=== PATIENT | male | born 1990 | race Caucasian/White ===

== ENCOUNTER → 2018-07-06 | Outpatient (CLI) | payer OTHER ==
[~2018-07-06] MED LIST: AMPDEX10; Ativan1 MG PO; CETI10 PO; ERYT500 PO; FAMO20 PO; HYDACE5 PO; IBUP800 PO; METPRE4DP PO; Norco 5-325 Ta1 EACH PO; PRED20 PO; PROBIOTIC1 EAC1 PO; Percocet 5-3251 EACH PO; QUET100 PO; QUET25 PO; Ultram50 MG PO
[2018-07-09 01:11] LABS: CHLAMYDIA TRACHOMATIS, NAA Negative (Negative); NEISSERIA GONORRHOEAE, NAA Negative (Negative)
== END | disposition home or self-care (01) ==
LOC: LAB SRC 13:30 → LAB SHORT 13:30
PROVIDERS: Physician Assistant
DX: R30.9 Painful micturition, unspecified (principal)
CPT/HCPCS: 87491; 87591

== ENCOUNTER 2018-09-29 20:28 | Emergency (ER) | payer OTHER ==
[~2018-09-29] VITALS: Ht 180.3 cm; Wt 93.0 kg
[2018-09-29] MEDS ORDERED: Prozac20 MG (20:36)
[2018-09-29] MEDS ORDERED: OLANZAPINE15 MG PO (20:36)
[2018-09-29] MEDS ORDERED: HYDR1TAB94 PO (21:33)
[2018-09-29] MEDS ORDERED: IBUP800 PO (21:33)
== END 2018-09-29 21:55 | disposition home or self-care (01) ==
LOC: ER 20:28
DX: M23.92 Unspecified internal derangement of left knee (principal); Z88.0 Allergy status to penicillin; Z79.899 Other long term (current) drug therapy; F17.210 Nicotine dependence, cigarettes, uncomplicated; F20.9 Schizophrenia, unspecified
CPT/HCPCS: 29505; 73562-LT; 99283-25; A9270

== ENCOUNTER → 2018-10-05 | Outpatient (CLI) | payer OTHER ==
[~2018-10-05] MED LIST changes: +HYDR1TAB94 PO; +OLANZAPINE15 MG PO; +Prozac20 MG
[2018-10-05 10:19] LABS: WBC Count, Synovial Fluid 1154 /mm3 (0-180)
[2018-10-05 11:07] LABS: Color, Synovial Fluid Pale Yellow (None-P Yel)
[2018-10-05 11:08] LABS: RBC Count, Synovial Fluid 250 /mm3 (0-0)
[2018-10-05 11:14] LABS: Body Fluid Crystals NEG (NEGATIVE)
[2018-10-05 11:18] LABS: Appearance, Synovial Fluid Hazy (Clear)
[2018-10-05 11:25] LABS: Lymphs, Synovial Fluid 9 % (0-15); Monocytes/Macrophages, Synovia 59 % (0-65); Neutrophils, Synovial Fluid 30 % (0-24)
== END | disposition home or self-care (01) ==
LOC: LAB SHORT 09:46 → LAB 09:46
PROVIDERS: Orthopaedic Surgery
DX: M25.462 Effusion, left knee (principal)
CPT/HCPCS: 87070; 87075; 87205; 89051; 89060

== ENCOUNTER → 2019-01-04 | Outpatient (CLI) | payer OTHER ==
[2019-01-04 17:38] LABS: U Amphetamine Screen Not Detected; U Barbituate Screen Not Detected; U Benzodiazapine Screen Not Detected; U Buprenorphine Screen Not Detected; U Cannabinoids Screen DETECTED; U Cocaine Screen Not Detected; U Methadone Screen Not Detected; U Methamphetamine Screen Not Detected; U Opiates Screen Not Detected; U Oxycodone Screen Not Detected; U Phencyclidine Screen Not Detected; U Propoxyphene Screen Not Detected
== END | disposition home or self-care (01) ==
LOC: LAB SHORT 14:28 → LAB 14:28
PROVIDERS: Psychiatry & Neurology Psychiatry
DX: Z51.81 Encounter for therapeutic drug level monitoring (principal); Z79.899 Other long term (current) drug therapy
CPT/HCPCS: G0480

== ENCOUNTER 2022-04-10 11:08 | Day surgery (SDC) | payer OTHER ==
[~2022-04-10] VITALS: Ht 180.3 cm; Wt 115.9 kg
[2022-04-10] MEDS ORDERED: CAPLYTA (11:36)
[2022-04-10] MEDS ORDERED: DIVA125 (11:37)
[2022-04-10] MEDS ORDERED: QUET25 ×2 (11:37→11:38)
[2022-04-10] MEDS ORDERED: FLUO10 (11:37)
[2022-04-10] MEDS ORDERED: VENL25 (11:37)
== END 2022-04-10 13:26 | disposition home or self-care (01) ==
LOC: ORSCSDS 11:08
PROVIDERS: Student in an Organized Health Care Education/Training Program
PROC: 0DBL8ZX Excision of Transverse Colon, Via Natural or Artificial Opening Endoscopic, Diagnostic (ICD-10-PCS; principal; 2022-04-10 13:15)
PROC: 0DBE8ZX Excision of Large Intestine, Via Natural or Artificial Opening Endoscopic, Diagnostic (ICD-10-PCS; principal; 2022-04-10 13:15)
PROC: 0DB58ZX Excision of Esophagus, Via Natural or Artificial Opening Endoscopic, Diagnostic (ICD-10-PCS; principal; 2022-04-10 13:15)
PROC: 0DBN8ZX Excision of Sigmoid Colon, Via Natural or Artificial Opening Endoscopic, Diagnostic (ICD-10-PCS; principal; 2022-04-10 13:15)
PROC: 0DB98ZX Excision of Duodenum, Via Natural or Artificial Opening Endoscopic, Diagnostic (ICD-10-PCS; principal; 2022-04-10 13:15)
PROC: 0DB78ZX Excision of Stomach, Pylorus, Via Natural or Artificial Opening Endoscopic, Diagnostic (ICD-10-PCS; principal; 2022-04-10 13:15)
DX: R19.7 Diarrhea, unspecified (principal); K52.9 Noninfective gastroenteritis and colitis, unspecified; K21.00 Gastro-esophageal reflux disease with esophagitis, without bleeding; D12.3 Benign neoplasm of transverse colon; D12.5 Benign neoplasm of sigmoid colon; K63.5 Polyp of colon; K22.2 Esophageal obstruction; K29.70 Gastritis, unspecified, without bleeding; Z79.899 Other long term (current) drug therapy
CPT/HCPCS: 88305; 88312; 88342; J0330; J0461; J2250; J2405; J2704; J7120; Q9968

== ENCOUNTER 2022-09-25 10:41 | Day surgery (SDC) | payer OTHER ==
[~2022-09-25] VITALS: Ht 175.3 cm; Wt 117.0 kg
[~2022-09-25 10:41] MED LIST changes: +CAPLYTA; +DIVA125; +FLUO10; +QUET25; +VENL25 PO
[2022-09-25 11:15] VITALS: BP 127/85
[2022-09-25] MEDS ORDERED: Prozac40 MG PO (11:44)
[2022-09-25] MEDS ORDERED: OMEP20ER (11:45)
[2022-09-25] MEDS ORDERED: ATOR10 PO (11:53)
--- NOTE | 2022-09-25 13:54 | NUR ---
09/25/22 [address] ROSE; SEE ANESTHESIA RECORDS.
[2022-09-25 14:30] VITALS: BP 140/93
[2022-09-25 14:45] VITALS: BP 149/96
[2022-09-25 14:54] VITALS: BP 136/82
== END 2022-09-25 14:56 | disposition home or self-care (01) ==
LOC: ORSCMMR 10:41 → ORD 12:00 → ORSCMMR 14:56
PROVIDERS: Internal Medicine Gastroenterology
PROC: 0DB68ZX Excision of Stomach, Via Natural or Artificial Opening Endoscopic, Diagnostic (ICD-10-PCS; principal; 2022-09-25 12:00)
DX: K21.00 Gastro-esophageal reflux disease with esophagitis, without bleeding (principal); Z87.19 Personal history of other diseases of the digestive system; K44.9 Diaphragmatic hernia without obstruction or gangrene; I10 Essential (primary) hypertension; F20.9 Schizophrenia, unspecified; F32.9 Major depressive disorder, single episode, unspecified; J44.9 Chronic obstructive pulmonary disease, unspecified; E78.5 Hyperlipidemia, unspecified; Z87.891 Personal history of nicotine dependence; Z79.899 Other long term (current) drug therapy
CPT/HCPCS: 88305; 88341; 88342; J2250; J2704; J7120

== ENCOUNTER 2023-03-07 17:56 | Emergency (ER) | payer OTHER ==
[~2023-03-07] VITALS: Ht 180.3 cm; Wt 117.9 kg
[~2023-03-07 17:56] MED LIST changes: +ATOR10 PO; +OMEP20ER; +Prozac40 MG PO
[2023-03-07 18:03] VITALS: BP 165/95
== END 2023-03-07 19:40 | disposition home or self-care (01) ==
LOC: ER 17:56
DX: S00.83XA Contusion of other part of head, initial encounter (principal); S40.212A Abrasion of left shoulder, initial encounter; S80.211A Abrasion, right knee, initial encounter; S70.219A Abrasion, unspecified hip, initial encounter; F17.210 Nicotine dependence, cigarettes, uncomplicated; V28.49XA Other motorcycle driver injured in noncollision transport accident in traffic accident, initial encounter; Z88.0 Allergy status to penicillin; Z79.899 Other long term (current) drug therapy
CPT/HCPCS: 29125; 29505; 71046; 73110; 73562-RT; 90471; 90714; 90715; 99284-25; L3917